=== PATIENT | male | born 1970 | race Caucasian/White ===

== ENCOUNTER → 2019-08-06 | Outpatient (CLI) | payer OTHER ==
--- NOTE | 2019-08-06 08:28 | REP ---
SCROTAL SONOGRAPHY: HISTORY: Testicular lump. FINDINGS: Scanning at the level of the palpable lump directed by the patient demonstrates a normal epididymis on the right. There is no evidence of intratesticular mass lesion on either side. Right testicular measurements are 4.4 x 2.3 x 3.3 cm. Left testis measures 4.4 x 2.4 x 3.0 cm. Doppler flow is present bilaterally in the testes. Resistive indices are 0.62 on the right and 0.51 on the left. There is a very small quantity of hydrocele fluid bilaterally. This is not abnormal. IMPRESSION: Normal bilateral scrotal sonography. Electronically Signed by Chuck Marcus MD 08/06/2019 09:20 A
== END ==
LOC: M RAD 06:46
PROVIDERS: ATTEND Nurse Practitioner Women's Health
DX: N50.89 Other specified disorders of the male genital organs (principal)

== ENCOUNTER 2022-11-08 11:02 | Day surgery (SDC) | payer OTHER ==
[~2022-11-08] VITALS: Ht 180.3 cm; Wt 104.2 kg
[~2022-11-08 11:02] MED LIST: NS 1,000 ML IV ONE; ROSU40TA4 PO; VITA-183 PO
[2022-11-08] MEDS ORDERED: propofoL 200 MG/20 ML VIAL As Ordered ONE ×2 (12:04→12:05)
[2022-11-08] MEDS ORDERED: LIDOCAINE 2% 100MG/5ML SDV (FOR ANES.) As Ordered ONE (12:04)
[2022-11-08 13:29] VITALS: TEMP 97.7
[2022-11-08 13:43] VITALS: BP 125/71; O2SAT 100
== END 2022-11-08 13:47 | disposition home or self-care (01) ==
LOC: M OPP 11:02
PROVIDERS: ATTEND Internal Medicine Gastroenterology
DX: Z12.11 Encounter for screening for malignant neoplasm of colon (principal); K64.0 First degree hemorrhoids; K57.30 Diverticulosis of large intestine without perforation or abscess without bleeding; G47.33 Obstructive sleep apnea (adult) (pediatric); Z99.89 Dependence on other enabling machines and devices; Z87.891 Personal history of nicotine dependence